=== PATIENT | male | born 1975 | race Caucasian/White ===

== ENCOUNTER 2017-12-07 16:36 | Emergency (ER) | payer OTHER ==
[~2017-12-07] VITALS: Ht 180.3 cm; Wt 59.0 kg
[~2017-12-07 16:36] MED LIST: Advil200 M1 PO; B-1100 MG PO; CEPH500 PO; CHLO25 PO; HYDACE5 PO; MAGOX 400400 MG PO; ROXICODONE5 MG PO; SERT25 PO; SULTRIDS PO; THIA100 PO; TYLENOL PM PO
[2017-12-07 17:18] LABS: BASOPHILS ABSOLUTE AUTO 0.06 K/mm3 (0.00-0.23); BASOPHILS PERCENT AUTO 1 % (0-2); EOSINOPHILS ABSOLUTE AUTO 0.03 K/mm3 (0.00-0.68); EOSINOPHILS PERCENT AUTO 1 % (0-6); Hematocrit 48.5 % (37.0-53.0); Hemoglobin 17.2 g/dL (13.5-17.5); IMMATURE GRAN ABSOLUTE AUTO 0.03 K/mm3 (0.00-0.10); IMMATURE GRAN PERCENT AUTO 1 % (0-1); LYMPHOCYTES ABSOLUTE AUTO 2.14 K/mm3 (0.84-5.20); LYMPHOCYTES PERCENT AUTO 43 % (21-46); MONOCYTES ABSOLUTE AUTO 0.46 K/mm3 (0.16-1.47); MONOCYTES PERCENT AUTO 9 % (4-13); Mean Corpuscular HGB 34.7 pg (26.0-34.0); Mean Corpuscular HGB Conc 35.5 g/dL (31.5-36.5); Mean Corpuscular Volume 98 fL (80-100); Mean Platelet Volume 10.8 fL (9.1-12.4); NEUTROPHILS ABSOLUTE AUTO 2.23 K/mm3 (1.96-9.15); NEUTROPHILS PERCENT AUTO 45 % (41-73); Platelet Count 96 K/mm3 (150-400); RDW Coefficient Variation 12.4 % (11.7-14.2); RDW Standard Deviation 44.9 fL (35.1-46.3); Red Blood Cell Count 4.96 M/mm3 (4.30-5.90); White Blood Cell Count 4.95 K/mm3 (4.00-11.30)
[2017-12-07 17:41] LABS: Magnesium, Blood 2.3 mg/dL (1.6-2.4)
[2017-12-07 17:48] LABS: Alanine Aminotransfer (ALT/SGP 52 U/L (12-78); Albumin, Blood 3.4 g/dL (3.4-5.0); Albumin/Globulin Ratio 0.8 (0.8-1.8); Alk Phos 119 U/L (50-136); Anion Gap 10 mmol/L (6-16); Aspartate Aminotrans (AST/SGOT 143 U/L (12-37); Bilirubin, Total 0.9 mg/dL (0.1-1.0); Blood Urea Nitrogen 6 mg/dL (8-24); Bun/Creatinine Ratio 10.8 (12.0-20.0); CO2, Blood 26 mmol/L (21-32); Calcium, Blood 8.3 mg/dL (8.5-10.1); Chloride, Blood 102 mmol/L (98-108); Creatinine, Blood 0.56 mg/dL (0.60-1.20); Globulin, Blood 4.1 g/dL (2.2-4.0); Glomerular Filtration Rate >60 (60-); Glucose, Blood 89 mg/dL (70-99); Potassium, Blood 4.4 mmol/L (3.5-5.5); Sodium, Blood 138 mmol/L (136-145); Total Protein, Blood 7.5 g/dL (6.4-8.2)
[2017-12-07 17:52] LABS: Ethanol (Alcohol), Blood, Med 397 mg/dL
[2017-12-07] MEDS ORDERED: CHLO25 PO (18:01)
== END 2017-12-07 18:20 | disposition home or self-care (01) ==
LOC: ER 16:36
PROVIDERS: Emergency Medicine
DX: F10.229 Alcohol dependence with intoxication, unspecified (principal); F17.210 Nicotine dependence, cigarettes, uncomplicated; Y90.8 Blood alcohol level of 240 mg/100 ml or more
CPT/HCPCS: 36415; 71046; 80053; 83735; 85025; 99283; G0480; J7030

== ENCOUNTER 2018-08-29 02:12 | Emergency (ER) | payer OTHER ==
[~2018-08-29] VITALS: Ht 180.3 cm; Wt 63.5 kg
[2018-08-29] MEDS ORDERED: GABA600 (02:40)
[2018-08-29] MEDS ORDERED: CLON.1 PO (02:41)
[2018-08-29] MEDS ORDERED: Thiamine HCl100 MG PO (02:41)
[2018-08-29] MEDS ORDERED: MULTI VITAMIN1 EACH PO (02:42)
[2018-08-29] MEDS ORDERED: FOLI400 PO (02:42)
[2018-08-29] MEDS ORDERED: Melatonin5 M1 PO (02:44)
[2018-08-29] MEDS ORDERED: LORA1 PO (02:50)
[2018-08-29] MEDS ORDERED: CHLO25 PO (02:50)
[2018-08-29] MEDS ORDERED: METO25 PO (02:51)
[2018-08-29] MEDS ORDERED: HYDPAM50 PO (02:52)
[2018-08-29] MEDS ORDERED: PROM25 PO (02:52)
[2018-08-29] MEDS ORDERED: TRAZ50 PO (02:53)
[2018-08-30] MEDS ORDERED: Ibuprofen Ib200 MG PO (12:07)
[2018-08-30] MEDS ORDERED: ACET500 PO (12:08)
== END 2018-08-29 04:41 | disposition home or self-care (01) ==
LOC: ER 02:12
DX: F10.239 Alcohol dependence with withdrawal, unspecified (principal); Z79.899 Other long term (current) drug therapy; F17.210 Nicotine dependence, cigarettes, uncomplicated
CPT/HCPCS: 99285

== ENCOUNTER 2018-08-29 06:39 | Emergency (ER) | payer OTHER ==
[~2018-08-29] VITALS: Ht 180.3 cm; Wt 63.5 kg
[~2018-08-29 06:39] MED LIST changes: +CLON.1 PO; +FOLI400 PO; +GABA600; +HYDPAM50 PO; +LORA1 PO; +METO25 PO; +MULTI VITAMIN1 EACH PO; +Melatonin5 M1 PO; +PROM25 PO; +TRAZ50 PO; +Thiamine HCl100 MG PO
[2018-08-29 07:31] LABS: BASOPHILS ABSOLUTE AUTO 0.05 K/mm3 (0.00-0.23); BASOPHILS PERCENT AUTO 1 % (0-2); EOSINOPHILS ABSOLUTE AUTO 0.06 K/mm3 (0.00-0.68); EOSINOPHILS PERCENT AUTO 1 % (0-6); Hematocrit 43.3 % (37.0-53.0); Hemoglobin 15.1 g/dL (13.5-17.5); IMMATURE GRAN ABSOLUTE AUTO 0.02 K/mm3 (0.00-0.10); IMMATURE GRAN PERCENT AUTO 0 % (0-1); LYMPHOCYTES ABSOLUTE AUTO 1.34 K/mm3 (0.84-5.20); LYMPHOCYTES PERCENT AUTO 25 % (21-46); MONOCYTES ABSOLUTE AUTO 0.46 K/mm3 (0.16-1.47); MONOCYTES PERCENT AUTO 9 % (4-13); Mean Corpuscular HGB 33.1 pg (26.0-34.0); Mean Corpuscular HGB Conc 34.9 g/dL (31.5-36.5); Mean Corpuscular Volume 95 fL (80-100); Mean Platelet Volume 10.4 fL (9.1-12.4); NEUTROPHILS ABSOLUTE AUTO 3.38 K/mm3 (1.96-9.15); NEUTROPHILS PERCENT AUTO 64 % (41-73); Platelet Count 123 K/mm3 (150-400); RDW Standard Deviation 45.3 fL (35.1-46.3); Red Blood Cell Count 4.56 M/mm3 (4.30-5.90); White Blood Cell Count 5.31 K/mm3 (4.00-11.30)
[2018-08-29 07:47] LABS: Alanine Aminotransfer (ALT/SGP 51 U/L (12-78); Albumin, Blood 3.8 g/dL (3.4-5.0); Albumin/Globulin Ratio 1.2 (0.8-1.8); Alk Phos 99 U/L (50-136); Anion Gap 7 mmol/L (6-16); Aspartate Aminotrans (AST/SGOT 76 U/L (12-37); Bilirubin, Total 2.3 mg/dL (0.1-1.0); Blood Urea Nitrogen 11 mg/dL (8-24); Bun/Creatinine Ratio 14.7 (12.0-20.0); CO2, Blood 30 mmol/L (21-32); Calcium, Blood 9.1 mg/dL (8.5-10.1); Chloride, Blood 97 mmol/L (98-108); Creatinine, Blood 0.75 mg/dL (0.60-1.20); Ethanol (Alcohol), Blood, Med <3 mg/dL; Globulin, Blood 3.3 g/dL (2.2-4.0); Glomerular Filtration Rate >60 (60-); Glucose, Blood 96 mg/dL (70-99); Potassium, Blood 3.6 mmol/L (3.5-5.5); Sodium, Blood 134 mmol/L (136-145); Total Protein, Blood 7.1 g/dL (6.4-8.2)
[2018-08-30] MEDS ORDERED: Ibuprofen Ib200 MG PO (12:07)
[2018-08-30] MEDS ORDERED: ACET500 PO (12:08)
== END 2018-08-29 07:53 | disposition left against medical advice (07) ==
LOC: ER 06:39
PROVIDERS: Emergency Medicine
DX: K52.9 Noninfective gastroenteritis and colitis, unspecified (principal); F17.210 Nicotine dependence, cigarettes, uncomplicated; Z79.899 Other long term (current) drug therapy
CPT/HCPCS: 36415; 71045; 80053; 83690; 85025; 99285-25; G0480; J7030; Q0163

== ENCOUNTER 2018-08-29 09:49 | Emergency (ER) | payer OTHER ==
[~2018-08-29] VITALS: Ht 180.3 cm; Wt 77.1 kg
[2018-08-30] MEDS ORDERED: Ibuprofen Ib200 MG PO (12:07)
[2018-08-30] MEDS ORDERED: ACET500 PO (12:08)
== END 2018-08-29 11:20 | disposition home or self-care (01) ==
LOC: ER 09:49
DX: S01.81XA Laceration without foreign body of other part of head, initial encounter (principal); W19.XXXA Unspecified fall, initial encounter; Z79.899 Other long term (current) drug therapy; F17.210 Nicotine dependence, cigarettes, uncomplicated
CPT/HCPCS: 12014; 96372; 99282-25; J3360

== ENCOUNTER 2018-08-29 13:09 | Inpatient (IN) | payer OTHER ==
[~2018-08-29] VITALS: Ht 180.3 cm; Wt 69.8 kg
--- NOTE | 2018-08-29 17:47 | NUR ---
[facility] [place]. LEFT MESSAGE AND FAX NUMBER FOR THEM TO FAX A POTENTIAL MEDICATION LIST TO. HOWEVER, PT'S MOM REPORTS SHE DOES NOT THINK THAT HE TAKES ANY MEDICATIONS, SHE NEVER SEES HIM TAKE ANY MEDICATIONS.
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
--- NOTE | 2018-08-29 18:37 | NUR ---
ADMISSION / SHIFT SUMMARY: REPORT RECEIVED FROM SEBASTIAN Velarde RN IN ED. PT ARRIVED TO ICU-12 AT APPROX 1515. HE IS RESTING QUIETLY AT THAT TIME BUT DOES BLINDLY SWING HIS ARMS OUT AT STIMULUS & NEEDS REASSURANCE & REMINDERS TO STAY CALM. PT IS NOW ON PRECEDEX DRIP, TITRATION DOC IN FLOWSHEET. HE IS TOLERATING THIS WELL & IS VISIBLY MORE RELAXED. HE DOES STILL STARTLE EASILY AT TIMES & REMAINS RESPONSIVE TO VERBAL STIMULI. HE DOES NOT FOLLOW COMMANDS OR ANSWER QUESTIONS APPROPRIATELY. HE HAS MULTIPLE WOUNDS W/ UNKNOWN MECHANISM OF INJURY, PHOTOS HAVE BEEN TAKEN & PLACED IN CHART FOR DOCUMENTATION, ALL WOUNDS HAVE BEEN DRESSED APPROPRIATELY WELL. WILL CONTINUE TO MONITOR & REPORT OFF TO ONCOMING RN.
--- NOTE | 2018-08-29 20:54 | NUR ---
PT WITH PRODUCTIVE COUGH. PT LYING IN SEMI FOWLERS. HOB 30'. PT AWAKENS SLIGHTLY WITH EYES SLIGHTLY OPEN WHEN ASKED IF HAD TO GO, "PEE". PT TOOK BLANKETS OFF. THIS RN TRIED TO PLACE URINAL WITH PT SWIPING URINAL AND RN'S HAND AWAY STATING, "I KNOW HOW MY YECENIA WORKS". URINAL PLACED AT BEDSIDE. WILL CONTINUE TO OFFER URINAL AND MONITOR PRN.
--- NOTE | 2018-08-29 22:06 | NUR ---
PRECEDEX REDUCED: PT AWAKENS SLIGHTLY TO RN MOVING IV LINES. PT MUMBLES OKAY. PT WITH SLIGHT TREMORS BUT APPEARS TO BE AWARE OF HIS SURROUNDINGS. PT FALLS IMMEDIATELY BACK TO SLEEP. PRECEDEX REDUCED TO 0.2 mcg/kg/hr. SEE W/C ASSESSMENT. WILL CONTINUE TO MONITOR.
--- NOTE | 2018-08-29 22:50 | NUR ---
PT'S MOTHER CALLED AND WAS GIVEN UPDATE.
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
--- NOTE | 2018-08-30 01:18 | NUR ---
PT TO EDGE OF BED ASKING TO BE ABLE TO GO OUT TO WALK. PT EASILY REDIRECTED AND SEEMED TO UNDERSTAND, SO FAR, HIS SITUATION IN THE ICU. PT STATED WANTING TO SMOKE. PT ACCEPTED EXPLANATION AGAIN AND LAY BACK DOWN.
--- NOTE | 2018-08-30 01:36 | NUR ---
AT APPRX 0120 PT SUDDENLY GOT TO EDGE OF BED. RN'S IMMEDIATEDLY TO BEDSIDE. PT STATED WAS LEAVING TO GO GET CIGARETTES. PT NOT EASY TO REDIRECT THIS TIME. PT PULLED OF ALL OF HIS LEADS AND WANTED TO LEAVE. AFTER REMINDING PT OF HIS THREE VISITS TO THE ED AND PURPOSE OF GOING TO [facility] PT STATED, "THEN GIVE ME SOMETHING TO CALM ME DOWN". PT PRECEDEX TITRATED UP TO 0.7mcg/kg/hr UNTIL ATIVAN GIVEN (4mg IVP FOR CIWA OF 19-24). LEADS REPLACED ON PT ALONG OXYMETER. CURRENTLY PT SLEEPING. VSS. PT SATS 95% ON RA. SEE FLOWSHEET FOR FURTHER VITALS.
[2018-08-30 03:38] LABS: Anion Gap 9 mmol/L (6-16); Blood Urea Nitrogen 9 mg/dL (8-24); Bun/Creatinine Ratio 14.5 (12.0-20.0); CO2, Blood 25 mmol/L (21-32); Calcium, Blood 7.7 mg/dL (8.5-10.1); Chloride, Blood 105 mmol/L (98-108); Creatinine, Blood 0.62 mg/dL (0.60-1.20); Glomerular Filtration Rate >60 (60-); Glucose, Blood 100 mg/dL (70-99); Magnesium, Blood 2.2 mg/dL (1.6-2.4); Potassium, Blood 3.4 mmol/L (3.5-5.5); Sodium, Blood 139 mmol/L (136-145)
--- NOTE | 2018-08-30 04:53 | NUR ---
PT CONTINUING TO SLEEP. VSS. CIWA <4 AT THIS TIME.
--- NOTE | 2018-08-30 06:42 | NUR ---
RONALD ROCK CALLED AND WAS GIVEN A BRIEF UPDATE.
--- NOTE | 2018-08-30 06:48 | NUR ---
PRECEDEX REMAINS AT 0.1mcg/kg/hr. PT HAS NOT REQUIERED ANY FURTHER CIWA INTERVENTION SINCE THE LAST AT 0125. VSS.
--- NOTE | 2018-08-30 07:30 | NUR ---
ASSUMED CARE: REPORT RECEIVED FROM GAEL Gomez RN. ASSUMED CARE OF THIS PT AT APPROX 0700. ROUNDING COMPLETE, PT RESTING QUIETLY AT THIS TIME. PRECEDEX DRIP CHARTED IN FLOWSHEET. PT ANSWERING SIMPLE QUESTIONS & IS RESPONSIVE TO VERBAL STIMULI. WILL CONTINUE TO MONITOR & UPDATE NEEDED.
--- NOTE | 2018-08-30 08:00 | NUR ---
PROVIDER IN ROOM / UPDATE: DR. MORENO IN ROOM TO SEE PT. THE PT HAS AWAKENED & BECOME MORE AGITATED, STATING HE WILL NOT TAKE ANY MEDS & WOULD LIKE TO GO HOME THIS MORNING. HE REQUESTS TO CALL HIS MOTHER TO COME GET HIM. THE PT HAS SPOKEN W/ HIS MOTHER & DR. MORENO IS IN THE ROOM TO DISCUSS CARE W/ PT. FOLLOWING HIS CONVERSATION W/ DR. MORENO, THE PT IS WILLING TO STAY ADMITTED A PT BUT WISHES TO HAVE ALL LINES DISCONNECTED SO THAT HE MAY WALK AROUND. HIS GAIT IS STEADY & HE IS ABLE TO CALL APPROPRIATELY FOR ASSISTANCE PRN.
[2018-08-30] MEDS ORDERED: Ibuprofen Ib200 MG PO (12:07)
[2018-08-30] MEDS ORDERED: ACET500 PO (12:08)
--- NOTE | 2018-08-30 15:08 | NUR ---
NOTE PT WALKED OVER WITH NURSE FROM ICU 12. PT GAIT STEADY. VSS. HANDS SLIGHTLY SHAKEY. CIWA 8. TALKED WITH PT ABOUT LIBRIUM AND ATIVAN. TALKED ABOUT A SHOWER. PT AGREED TO LIBRIUM 25MG. PT TOLERATED A SHOWER WELL. HE DID STATE THAT THE ABRASION STUNG A LOT BUT NOT TOO BAD. REDRESSED THE RIGHT SHOULDER AND RIGHT KNEE AFTER THE SHOWER. PT TALKING ABOUT 6 YEARS AGO. HE DOESN'T WANT TO GO BACK TO [facility]. HE SAYS THE PEOPLE THERE ARE A BUNCH OF [employer] AND HE DOESN'T BELONG THERE. CONTINUE POT.
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
--- NOTE | 2018-08-30 22:53 | NUR ---
PHYSICIAN CONTACTED- PT REQUESTING MEDICATION TO HELP HIM SLEEP. DR SALAZAR CONTACTED AND ORDERS RECEIVED FOR TRAZODONE 50MG AT BEDTIME PRN. WILL INPUT ORDERS AND ADMINISTER TO PT.
--- NOTE | 2018-08-31 01:57 | NUR ---
PHYSICIAN CONTACTED- PT CONTINUES TO HAVE DIFFICULTIES SLEEPING. HOME MED REC SHOWS THAT PT TAKES 1-3 OR 50-150 MG TRAZODONE AT HOME FOR SLEEP. DR HERNÁNDEZ CONTACTED AND ORDERS FOR HOME DOSE RECEIVED.
--- NOTE | 2018-08-31 05:59 | NUR ---
SHIFT SUMMARY- PT HAS REMAINED AOX4 THROUGHOUT THE SHIFT. VSS. PLEASANT AND COOPERATIVE WITH CARE. PT CONTINUES TO AMBULATE INDEPENDENTLY AROUND ROOM AND UNIT. PT EXPRESSING CONCERN ABOUT PLANS FOR DISCHARGE, STATING THAT HE WANTS TO GO BACK TO [facility] TO FULFILL REMAINDER OF TREATMENT PLAN. DRILL PRESS HAND CONSULTED FOR DISCHARGE PLANNING. PT MEDICATED ONE TIME FOR PAIN R/T BRUISING AND ABRASIONS OBTAINED PRIOR TO ADMISSIONS, REPORTED THAT PAIN DECREASED WITH ORDERED MEDICATIONS. PT ABLE TO SLEEP THROUGHOUT REMAINDER OF THE NIGHT, AFTER SECOND ORDERED DOSE OF TRAZODONE, BUT WOKE EASILY THIS AM FOR VITAL SIGNS. NO OTHER CHANGES NOTED FROM INITIAL ASSESSMENT. WILL CONTINUE TO MONITOR AND REPORT TO ONCOMING SHIFT RN. BED IN LOW POSITION, CALL LIGHT IN REACH.
--- NOTE | 2018-08-31 14:42 | NUR ---
PATIENT D/C'D WITH FAMILY. SPOKE WITH NICOL AT [facility] AND TOLD HER THAT THE HEAD CT CAME BACK CLEAR AND THE PATIENT SHOULD ARRIVE AROUND 1515 TODAY. D/C INSTRUCTIONS DISCUSSED WITH PATIENT AND COPY PROVIDED. PATIENT DENIES ANY FURTHER QUESTIONS OR CONCERNS.
== END 2018-08-31 16:03 | disposition home or self-care (01) | DRG 897 ==
LOC: ER 13:09 → ICUE 13:57 → ICUW 15:15 → PCU 08-30 13:27
PROVIDERS: ADMIT Hospitalist
DX: F10.231 Alcohol dependence with withdrawal delirium (principal); E87.1 Hypo-osmolality and hyponatremia; S01.81XA Laceration without foreign body of other part of head, initial encounter; F17.200 Nicotine dependence, unspecified, uncomplicated; W19.XXXA Unspecified fall, initial encounter; Y93.9 Activity, unspecified; R94.5 Abnormal results of liver function studies; T14.8XXA Other injury of unspecified body region, initial encounter
CPT/HCPCS: 12014; 36415; 70450; 71045; 80048; 80053; 83690; 83735; 85025; 90686; 96372; 96374; 96375; 99282-25; 99285; 99285-25; G0480; J1200; J1630; J1650; J2060; J3360; J3411; J3475; J7030; J7042; Q0163

== ENCOUNTER 2019-10-25 23:34 | Emergency (ER) | payer OTHER ==
[~2019-10-25] VITALS: Ht 180.3 cm; Wt 78.9 kg
[~2019-10-25 23:34] MED LIST changes: +ACET500 PO; +Ibuprofen Ib200 MG PO
[2019-10-26 03:57] LABS: Alanine Aminotransfer (ALT/SGP 73 U/L (12-78); Albumin, Blood 3.3 g/dL (3.4-5.0); Albumin/Globulin Ratio 0.8 (0.8-1.8); Alk Phos 145 U/L (50-136); Anion Gap 5 mmol/L (6-16); Aspartate Aminotrans (AST/SGOT 131 U/L (12-37); Bilirubin, Total 0.6 mg/dL (0.1-1.0); Blood Urea Nitrogen 5 mg/dL (8-24); Bun/Creatinine Ratio 9.8 (12.0-20.0); CO2, Blood 31 mmol/L (21-32); Calcium, Blood 8.8 mg/dL (8.5-10.1); Chloride, Blood 101 mmol/L (98-108); Creatinine, Blood 0.51 mg/dL (0.60-1.20); Globulin, Blood 3.9 g/dL (2.2-4.0); Glomerular Filtration Rate >60 (60-); Glucose, Blood 100 mg/dL (70-99); Potassium, Blood 3.8 mmol/L (3.5-5.5); Sodium, Blood 137 mmol/L (136-145); Total Protein, Blood 7.2 g/dL (6.4-8.2)
[2019-10-26 05:05] LABS: BASOPHILS ABSOLUTE AUTO 0.08 K/mm3 (0.00-0.23); BASOPHILS PERCENT AUTO 1 % (0-2); EOSINOPHILS ABSOLUTE AUTO 0.07 K/mm3 (0.00-0.68); EOSINOPHILS PERCENT AUTO 1 % (0-6); Hematocrit 43.4 % (37.0-53.0); Hemoglobin 15.2 g/dL (13.5-17.5); IMMATURE GRAN ABSOLUTE AUTO 0.06 K/mm3 (0.00-0.10); IMMATURE GRAN PERCENT AUTO 1 % (0-1); LYMPHOCYTES ABSOLUTE AUTO 1.42 K/mm3 (0.84-5.20); LYMPHOCYTES PERCENT AUTO 18 % (21-46); MONOCYTES ABSOLUTE AUTO 0.69 K/mm3 (0.16-1.47); MONOCYTES PERCENT AUTO 9 % (4-13); Mean Corpuscular HGB 34.5 pg (26.0-34.0); Mean Corpuscular Volume 98 fL (80-100); Mean Platelet Volume 10.4 fL (9.1-12.4); NEUTROPHILS ABSOLUTE AUTO 5.49 K/mm3 (1.96-9.15); NEUTROPHILS PERCENT AUTO 70 % (41-73); Platelet Count 126 K/mm3 (150-400); RDW Coefficient Variation 12.3 % (11.7-14.2); Red Blood Cell Count 4.41 M/mm3 (4.30-5.90); White Blood Cell Count 7.81 K/mm3 (4.00-11.30)
== END 2019-10-26 05:18 | disposition home or self-care (01) ==
LOC: ER 23:34
PROVIDERS: Emergency Medicine
DX: F10.129 Alcohol abuse with intoxication, unspecified (principal); R10.9 Unspecified abdominal pain; F17.210 Nicotine dependence, cigarettes, uncomplicated
CPT/HCPCS: 74176; 80053; 83690; 85025; J2405; J3010; J7030

== ENCOUNTER 2020-08-11 23:07 | Emergency (ER) | payer OTHER ==
[~2020-08-11] VITALS: Ht 180.3 cm; Wt 63.5 kg
[2020-08-11 23:40] LABS: BASOPHILS ABSOLUTE AUTO 0.04 K/mm3 (0.00-0.23); BASOPHILS PERCENT AUTO 0 % (0-2); EOSINOPHILS ABSOLUTE AUTO 0.02 K/mm3 (0.00-0.68); EOSINOPHILS PERCENT AUTO 0 % (0-6); Hematocrit 23.2 % (37.0-53.0); Hemoglobin 7.8 g/dL (13.5-17.5); IMMATURE GRAN ABSOLUTE AUTO 0.21 K/mm3 (0.00-0.10); IMMATURE GRAN PERCENT AUTO 2 % (0-1); LYMPHOCYTES ABSOLUTE AUTO 0.93 K/mm3 (0.84-5.20); LYMPHOCYTES PERCENT AUTO 8 % (21-46); MONOCYTES ABSOLUTE AUTO 0.89 K/mm3 (0.16-1.47); MONOCYTES PERCENT AUTO 8 % (4-13); Mean Corpuscular HGB 35.5 pg (26.0-34.0); Mean Corpuscular HGB Conc 33.6 g/dL (31.5-36.5); Mean Corpuscular Volume 106 fL (80-100); Mean Platelet Volume 11.3 fL (9.1-12.4); NEUTROPHILS ABSOLUTE AUTO 9.34 K/mm3 (1.96-9.15); NEUTROPHILS PERCENT AUTO 82 % (41-73); Platelet Count 125 K/mm3 (150-400); RDW Coefficient Variation 12.7 % (11.7-14.2); RDW Standard Deviation 48.3 fL (35.1-46.3); White Blood Cell Count 11.43 K/mm3 (4.00-11.30)
[2020-08-11 23:54] LABS: Alanine Aminotransfer (ALT/SGP 35 U/L (12-78); Albumin/Globulin Ratio 0.5 (0.8-1.8); Alk Phos 227 U/L (50-136); Anion Gap 13 mmol/L (6-16); Aspartate Aminotrans (AST/SGOT 66 U/L (12-37); Bilirubin, Total 2.1 mg/dL (0.1-1.0); Blood Urea Nitrogen 5 mg/dL (8-24); CO2, Blood 27 mmol/L (21-32); Calcium, Blood 7.1 mg/dL (8.5-10.1); Chloride, Blood 93 mmol/L (98-108); Creatinine, Blood 0.33 mg/dL (0.60-1.20); Ethanol (Alcohol), Blood, Med 237 mg/dL; Globulin, Blood 3.8 g/dL (2.2-4.0); Glomerular Filtration Rate >60 (60-); Glucose, Blood 71 mg/dL (70-99); Magnesium, Blood 2.3 mg/dL (1.6-2.4); Potassium, Blood 3.2 mmol/L (3.5-5.5); Sodium, Blood 133 mmol/L (136-145); Total Protein, Blood 5.8 g/dL (6.4-8.2)
[2020-08-12 00:52] LABS: Source, Urine Clean Catch
[2020-08-12 00:56] LABS: Appearance, Urine Clear (Clear); Blood, Urine Neg (Neg); Color, Urine Amber (P-Yellow); Glucose Qualitative, Urine Neg (Neg); Ketones, Urine 4+ (Neg); Leukocyte Esterase, Urine 1+ (Neg); Nitrite, Urine Neg (Neg); Protein, Urine 2+ (Neg); Specific Gravity, Urine 1.015 (1.003-1.022); Urobilinogen, Urine 4+ (Normal)
[2020-08-12 00:57] LABS: Bilirubin, Urine 1+ (Neg)
[2020-08-12 01:07] LABS: Bacteria Few /hpf; Hyaline Casts 0-2 /lpf (0-2); Red Blood Cells, Urine 0-2 /hpf (0-2); Squamous Epithelial Cells Not Seen /hpf (Few); White Blood Cells, Urine 0-2 /hpf (0-5)
[2020-08-12 01:08] LABS: International Normalized Ratio 1.09; Prothrombin Time Results 11.6 Sec (9.7-11.5)
[2020-08-12 03:02] LABS: Influenza A, PCR Negative (NEGATIVE); Influenza B, PCR Negative (NEGATIVE); Resp Syncytial Virus, PCR Negative (NEGATIVE); SARS-Cov-2 (COVID-19) PCR, MMC Negative (NEGATIVE)
== END 2020-08-12 02:12 | disposition short-term general hospital (02) ==
LOC: ER 23:07
PROVIDERS: Emergency Medicine
DX: K92.1 Melena (principal); F10.129 Alcohol abuse with intoxication, unspecified; D64.9 Anemia, unspecified; F17.210 Nicotine dependence, cigarettes, uncomplicated; Z20.828 Contact with and (suspected) exposure to other viral communicable diseases; Z79.899 Other long term (current) drug therapy
CPT/HCPCS: 0241U; 36415; 36430; 51701; 80053; 81001; 82272; 83690; 83735; 85025; 85610; 85730; 86850; 86900; 86901; 86923; 87086; 93005; 93010; 96365; 96368; 96375; 99285-25; C9113; G0480; J0696; J2060; J2354; J7030; J7050; P9016

== ENCOUNTER 2020-09-12 23:33 | Emergency (ER) | payer OTHER ==
[~2020-09-12] VITALS: Ht 180.3 cm; Wt 68.0 kg
[2020-09-13 00:51] LABS: BASOPHILS ABSOLUTE AUTO 0.09 K/mm3 (0.00-0.23); BASOPHILS PERCENT AUTO 1 % (0-2); EOSINOPHILS ABSOLUTE AUTO 0.16 K/mm3 (0.00-0.68); EOSINOPHILS PERCENT AUTO 1 % (0-6); Hematocrit 41.4 % (37.0-53.0); Hemoglobin 13.5 g/dL (13.5-17.5); IMMATURE GRAN ABSOLUTE AUTO 0.11 K/mm3 (0.00-0.10); IMMATURE GRAN PERCENT AUTO 1 % (0-1); LYMPHOCYTES ABSOLUTE AUTO 1.91 K/mm3 (0.84-5.20); LYMPHOCYTES PERCENT AUTO 13 % (21-46); MONOCYTES ABSOLUTE AUTO 0.78 K/mm3 (0.16-1.47); MONOCYTES PERCENT AUTO 5 % (4-13); Mean Corpuscular HGB 32.5 pg (26.0-34.0); Mean Corpuscular HGB Conc 32.6 g/dL (31.5-36.5); Mean Corpuscular Volume 100 fL (80-100); Mean Platelet Volume 11.2 fL (9.1-12.4); NEUTROPHILS ABSOLUTE AUTO 12.03 K/mm3 (1.96-9.15); NEUTROPHILS PERCENT AUTO 80 % (41-73); Platelet Count 210 K/mm3 (150-400); RDW Standard Deviation 51.5 fL (35.1-46.3); Red Blood Cell Count 4.15 M/mm3 (4.30-5.90); White Blood Cell Count 15.08 K/mm3 (4.00-11.30)
[2020-09-13 00:55] LABS: Alanine Aminotransfer (ALT/SGP 18 U/L (12-78); Albumin, Blood 1.9 g/dL (3.4-5.0); Albumin/Globulin Ratio 0.3 (0.8-1.8); Alk Phos 217 U/L (50-136); Anion Gap 9 mmol/L (6-16); Aspartate Aminotrans (AST/SGOT 81 U/L (12-37); Bilirubin, Total 3.5 mg/dL (0.1-1.0); Blood Urea Nitrogen 4 mg/dL (8-24); Bun/Creatinine Ratio 7.5 (12.0-20.0); CO2, Blood 30 mmol/L (21-32); Calcium, Blood 8.1 mg/dL (8.5-10.1); Chloride, Blood 93 mmol/L (98-108); Creatinine, Blood 0.53 mg/dL (0.60-1.20); Ethanol (Alcohol), Blood, Med 6 mg/dL; Globulin, Blood 5.5 g/dL (2.2-4.0); Glomerular Filtration Rate >60 (60-); Glucose, Blood 109 mg/dL (70-99); Potassium, Blood 3.8 mmol/L (3.5-5.5); Sodium, Blood 132 mmol/L (136-145); Total Protein, Blood 7.4 g/dL (6.4-8.2)
[2020-09-13 04:10] LABS: Automated BF WBC Count 0.045 K/mm3 (0-999); Body Fluid WBC Count 45 /mm3 (0-999)
[2020-09-13 04:11] LABS: Appearance, Body Fluid Clear (Clear); Color, Body Fluid Yellow (None-Yellow)
[2020-09-13 04:18] LABS: Glucose, Body Fluid 111 mg/dL; Protein, Body Fluid 0.5 g/dL
[2020-09-13 04:21] LABS: RBC Count, Body Fluid 10 /mm3 (0-0)
[2020-09-13 04:32] LABS: Total Cell Count, Body Fluid 100
== END 2020-09-13 05:52 | disposition home or self-care (01) ==
LOC: ER 23:33
PROVIDERS: Student in an Organized Health Care Education/Training Program
DX: R18.8 Other ascites (principal); F10.10 Alcohol abuse, uncomplicated; E86.0 Dehydration; F17.210 Nicotine dependence, cigarettes, uncomplicated
CPT/HCPCS: 36415; 71045; 80053; 82140; 82945; 83690; 84157; 85025; 87205; 89051; 99285-25; G0480; J7120

== ENCOUNTER 2020-10-05 18:20 | Emergency (ER) | payer OTHER ==
[~2020-10-05] VITALS: Ht 180.3 cm; Wt 64.0 kg
[2020-10-05 19:38] LABS: BASOPHILS ABSOLUTE AUTO 0.06 K/mm3 (0.00-0.23); BASOPHILS PERCENT AUTO 0 % (0-2); EOSINOPHILS PERCENT AUTO 1 % (0-6); Hematocrit 39.7 % (37.0-53.0); Hemoglobin 13.5 g/dL (13.5-17.5); IMMATURE GRAN ABSOLUTE AUTO 0.08 K/mm3 (0.00-0.10); IMMATURE GRAN PERCENT AUTO 1 % (0-1); LYMPHOCYTES ABSOLUTE AUTO 2.62 K/mm3 (0.84-5.20); LYMPHOCYTES PERCENT AUTO 18 % (21-46); MONOCYTES ABSOLUTE AUTO 0.77 K/mm3 (0.16-1.47); MONOCYTES PERCENT AUTO 5 % (4-13); Mean Corpuscular HGB 32.5 pg (26.0-34.0); Mean Corpuscular Volume 95 fL (80-100); Mean Platelet Volume 10.9 fL (9.1-12.4); NEUTROPHILS ABSOLUTE AUTO 11.35 K/mm3 (1.96-9.15); NEUTROPHILS PERCENT AUTO 76 % (41-73); Platelet Count 215 K/mm3 (150-400); RDW Coefficient Variation 13.9 % (11.7-14.2); Red Blood Cell Count 4.16 M/mm3 (4.30-5.90); White Blood Cell Count 14.98 K/mm3 (4.00-11.30)
[2020-10-05 20:03] LABS: Alanine Aminotransfer (ALT/SGP 15 U/L (12-78); Albumin, Blood 2.3 g/dL (3.4-5.0); Albumin/Globulin Ratio 0.5 (0.8-1.8); Alk Phos 203 U/L (50-136); Anion Gap 5 mmol/L (6-16); Aspartate Aminotrans (AST/SGOT 50 U/L (12-37); Bilirubin, Total 2.2 mg/dL (0.1-1.0); Blood Urea Nitrogen 28 mg/dL (8-24); Bun/Creatinine Ratio 34.9 (12.0-20.0); CO2, Blood 31 mmol/L (21-32); Calcium, Blood 8.6 mg/dL (8.5-10.1); Chloride, Blood 94 mmol/L (98-108); Globulin, Blood 4.9 g/dL (2.2-4.0); Glomerular Filtration Rate >60 (60-); Glucose, Blood 110 mg/dL (70-99); Potassium, Blood 3.5 mmol/L (3.5-5.5); Sodium, Blood 130 mmol/L (136-145); Total Protein, Blood 7.2 g/dL (6.4-8.2)
[2020-10-05 20:49] LABS: International Normalized Ratio 1.24; Prothrombin Time Results 13.1 Sec (9.7-11.5)
== END 2020-10-05 20:34 | disposition home or self-care (01) ==
LOC: ER 18:20
PROVIDERS: Emergency Medicine; Physician Assistant
DX: R18.8 Other ascites (principal); R14.0 Abdominal distension (gaseous); R06.02 Shortness of breath; F17.200 Nicotine dependence, unspecified, uncomplicated
CPT/HCPCS: 36415; 80053; 85025; 85610; 85730; 99283

== ENCOUNTER 2020-10-27 09:44 | Emergency (ER) | payer OTHER ==
[~2020-10-27] VITALS: Ht 180.3 cm; Wt 63.5 kg
[2020-10-27 10:38] LABS: Hematocrit 34.7 % (37.0-53.0); Hemoglobin 11.8 g/dL (13.5-17.5); Mean Corpuscular HGB 31.5 pg (26.0-34.0); Mean Corpuscular Volume 93 fL (80-100); Mean Platelet Volume 10.1 fL (9.1-12.4); Platelet Count 199 K/mm3 (150-400); RDW Coefficient Variation 13.5 % (11.7-14.2); Red Blood Cell Count 3.75 M/mm3 (4.30-5.90); White Blood Cell Count 8.83 K/mm3 (4.00-11.30)
[2020-10-27 10:52] LABS: International Normalized Ratio 1.07; Prothrombin Time Results 11.4 Sec (9.7-11.5)
[2020-10-27 10:56] LABS: Alanine Aminotransfer (ALT/SGP 24 U/L (12-78); Albumin/Globulin Ratio 0.4 (0.8-1.8); Alk Phos 176 U/L (50-136); Anion Gap 5 mmol/L (6-16); Aspartate Aminotrans (AST/SGOT 42 U/L (12-37); Blood Urea Nitrogen 14 mg/dL (8-24); Bun/Creatinine Ratio 21.1 (12.0-20.0); CO2, Blood 32 mmol/L (21-32); Calcium, Blood 8.8 mg/dL (8.5-10.1); Chloride, Blood 94 mmol/L (98-108); Creatinine, Blood 0.66 mg/dL (0.60-1.20); Globulin, Blood 4.6 g/dL (2.2-4.0); Glomerular Filtration Rate >60 (60-); Glucose, Blood 107 mg/dL (70-99); Potassium, Blood 3.5 mmol/L (3.5-5.5); Sodium, Blood 131 mmol/L (136-145); Total Protein, Blood 6.6 g/dL (6.4-8.2)
[2020-10-27 11:24] LABS: BASOPHILS ABSOLUTE MAN 0.17 K/mm3 (0.00-0.23); BASOPHILS PERCENT MAN 2 % (0-2); EOSINOPHILS PERCENT MAN 0 % (0-6); LYMPHOCYTES ABSOLUTE MAN 2.29 K/mm3 (0.84-5.20); LYMPHOCYTES PERCENT MAN 26 % (21-46); MONOCYTES ABSOLUTE MAN 0.35 K/mm3 (0.16-1.47); MONOCYTES PERCENT MAN 4 % (4-13); SEG NEUTROPHILS PERCENT MAN 68 % (41-73); TOTAL CELLS COUNTED 100
== END 2020-10-27 13:00 | disposition home or self-care (01) ==
LOC: ER 09:44
PROVIDERS: Physician Assistant
DX: R18.8 Other ascites (principal); F17.210 Nicotine dependence, cigarettes, uncomplicated
CPT/HCPCS: 36415; 80053; 85025; 85610; 99284

== ENCOUNTER 2020-11-15 14:26 | Day surgery (SDC) | payer OTHER | END 2020-11-15 22:59 | disposition home or self-care (01) | LOC: US 14:26 | DX: K70.31 Alcoholic cirrhosis of liver with ascites (principal); K70.40 Alcoholic hepatic failure without coma | CPT/HCPCS: 49083; 76700 ==

== ENCOUNTER 2020-11-30 17:32 | Inpatient (IN) | payer OTHER ==
[~2020-11-30] VITALS: Ht 180.3 cm; Wt 75.6 kg
[2020-11-30 18:41] LABS: BASOPHILS ABSOLUTE AUTO 0.06 K/mm3 (0.00-0.23); BASOPHILS PERCENT AUTO 0 % (0-2); EOSINOPHILS ABSOLUTE AUTO 0.07 K/mm3 (0.00-0.68); EOSINOPHILS PERCENT AUTO 1 % (0-6); Hematocrit 29.6 % (37.0-53.0); IMMATURE GRAN ABSOLUTE AUTO 0.08 K/mm3 (0.00-0.10); IMMATURE GRAN PERCENT AUTO 1 % (0-1); LYMPHOCYTES ABSOLUTE AUTO 1.56 K/mm3 (0.84-5.20); LYMPHOCYTES PERCENT AUTO 11 % (21-46); MONOCYTES ABSOLUTE AUTO 0.88 K/mm3 (0.16-1.47); MONOCYTES PERCENT AUTO 6 % (4-13); Mean Corpuscular HGB 31.3 pg (26.0-34.0); Mean Corpuscular HGB Conc 33.8 g/dL (31.5-36.5); Mean Corpuscular Volume 93 fL (80-100); NEUTROPHILS ABSOLUTE AUTO 11.59 K/mm3 (1.96-9.15); NEUTROPHILS PERCENT AUTO 81 % (41-73); Platelet Count 239 K/mm3 (150-400); RDW Coefficient Variation 13.5 % (11.7-14.2); RDW Standard Deviation 46.3 fL (35.1-46.3); Red Blood Cell Count 3.19 M/mm3 (4.30-5.90); White Blood Cell Count 14.24 K/mm3 (4.00-11.30)
--- NOTE | 2020-11-30 18:57 | NUR ---
ADMIT NOTE PATIENT DIRECT ADMITTED TO FLOOR AT 1800 FOR PERIRECTAL ABSCESS WITH DR BLISS. PLAN FOR SURGERY 12/01/20. 18 G IV STARTED IN LEFT ANTECUBITAL. LABS DRAWN AND CAPS CHANGED. IV ABX AND PAIN MEDS GIVEN. PATIENT NOTED TO HAVE SEVERE ADM DISTENTION/ASCITES. PT REPORTS HE GETS THE ABD FLUID DRAINED EVERY 1-2 WEEKS. SKIN IS DRY WITH SCATTERED BRUISES AND SCABS. PATIENT IS ALERT AND ORIENTED. RATING PERIRECTAL PAIN 9/10 BEFORE MEDS.
[2020-11-30 19:00] LABS: International Normalized Ratio 1.11; Prothrombin Time Results 11.9 Sec (9.7-11.5)
[2020-11-30 19:55] LABS: Alanine Aminotransfer (ALT/SGP 14 U/L (12-78); Albumin, Blood 1.5 g/dL (3.4-5.0); Albumin/Globulin Ratio 0.4 (0.8-1.8); Alk Phos 123 U/L (50-136); Anion Gap 7 mmol/L (6-16); Aspartate Aminotrans (AST/SGOT 28 U/L (12-37); Bilirubin, Total 0.5 mg/dL (0.1-1.0); Blood Urea Nitrogen 11 mg/dL (8-24); Bun/Creatinine Ratio 17.6 (12.0-20.0); CO2, Blood 26 mmol/L (21-32); Calcium, Blood 7.9 mg/dL (8.5-10.1); Chloride, Blood 97 mmol/L (98-108); Creatinine, Blood 0.62 mg/dL (0.60-1.20); Globulin, Blood 4.2 g/dL (2.2-4.0); Glomerular Filtration Rate >60 (60-); Glucose, Blood 102 mg/dL (70-99); Potassium, Blood 3.4 mmol/L (3.5-5.5); Sodium, Blood 130 mmol/L (136-145); Total Protein, Blood 5.7 g/dL (6.4-8.2)
[2020-11-30] MEDS ORDERED: HYDR1TAB94 PO (20:27)
[2020-11-30] MEDS ORDERED: LACT10SY PO (20:27)
[2020-11-30] MEDS ORDERED: MULVITA PO (20:27)
[2020-12-01 04:52] LABS: Anion Gap 6 mmol/L (6-16); Blood Urea Nitrogen 10 mg/dL (8-24); Bun/Creatinine Ratio 13.9 (12.0-20.0); CO2, Blood 30 mmol/L (21-32); Calcium, Blood 7.4 mg/dL (8.5-10.1); Chloride, Blood 98 mmol/L (98-108); Creatinine, Blood 0.72 mg/dL (0.60-1.20); Glomerular Filtration Rate >60 (60-); Glucose, Blood 103 mg/dL (70-99); Potassium, Blood 3.3 mmol/L (3.5-5.5); Sodium, Blood 134 mmol/L (136-145)
--- NOTE | 2020-12-01 05:35 | NUR ---
shift summary: DIRECT ADMIT PRE OP ROHITH RECTAL / HX CIRROHSIS R/T ETOH ABUSE PT IS A&OX3, CALM AND COOPERATIVE W/ BRIEF PERIOD OF LABILE TEARFUL PRESENTATION ,REPORTS HX OF MULTIPLE FALLS ABRASIONS TO HANDS, FINGERS,LEFT ELBOW, BILATERAL SHINS, RIGHT KNEE. PT HAS HX OF CIRROHSIS R/T ETOH W/ ASCEITIIES FIRM TENDER HYPOACTIVE BS, PAIN CURRENTLY CHEMICALLY MANAGED TOLERABLE @4/10W,18G IV LFA INFUSING LR @75HR IVPB UNISON, DRESSING TO GLUTEAL FOLD WOUND C/D/I IMAGES IN HARD CHART PROVIDER ASSESSED @STAGE2 ASSIST TO TURN Q2 HRS, SKIN IS DRY T/O W/ SCALES TO LE, PT REPORTS SMOKES 1 PACK A DAY, EXPERITORY WHEEZES BILATERALLY DIMINISHED ALL BHATIA. TACHYCARDIC T/O SHIFT 100-117,HON 30 DEGREES, CALL BURGESS WITHIN REACH
--- NOTE | 2020-12-01 07:35 | NUR ---
pt allows student to participate in care
--- NOTE | 2020-12-01 09:00 | NUR ---
PT PLEASANT COOP A/O./ SOME LABILE. QUIET. STATES GETS BELLY TAPPED EVERY 2 WEEKS. HE STATES MAY HAVE MOVED TO WEEKLY. STATES BRO IN LAW TAKES HIM FOR TX. PAIN MANAGEABLE AT THIS TIME. H/R REG, NO MURMER NOTED. NO TELE. LUNGS CLEAR WITH EXP WHEEZES IN UPPER. ON R.A. ABD DISTENDED, LARGE. TONES X4. EXPECTING PARACENTISIS TODAY, VOIDS URINAL AND 1 ASST TO BATHROOM. ROHITH WOUND TO BE I&D TODAY. PER DR COLLADO EARLY AFT. BED IN LOW POSITION, CALL LITE IN REACH, CALLS APPROP
--- NOTE | 2020-12-01 10:56 | NUR ---
TO [facility] PARACENTISIS 105
[2020-12-01 11:01] LABS: Influenza A, PCR NEGATIVE (NEGATIVE); Influenza B, PCR NEGATIVE (NEGATIVE); Resp Syncytial Virus, PCR NEGATIVE (NEGATIVE); SARS-Cov-2 (COVID-19) PCR, MMC NEGATIVE (NEGATIVE)
--- NOTE | 2020-12-01 11:47 | NUR ---
1130 THERESE LUGO FROM [facility] CALLED. 9L OUT SO FAR, WANTING TO KNOW HOW MUCH TO TAKE. REQUEST HOLD FOR NOW, AND WILL CALL DRMat CALLED DR JOSIANE HILLS STOP. CALLED THERESE KAUFMAN, BP NOW , CALLED THERESE KAUFMAN. DR HILLS STOP AND SEND BACK. CAN PULL MORE LATER IF NEEDED. THERESE HILLS TOTAL IS 10.5 LITERS REMOVED. PT TO ROOM AT 1152.
--- NOTE | 2020-12-01 13:22 | NUR ---
1310 ALBUMIN STARTED. DAY SURG IS HERE FOR PT. NEW SECOND IV STARTED FOR SURG AND TO KEEP ALBUMIN RUNNING. SENT ADDL BOTTLE ALBUMIN WITH PT.
--- NOTE | 2020-12-01 14:58 | NUR ---
12/01/20 1458 Renee Green PT ON SCHEDULED ANTIBIOTICS
--- NOTE | 2020-12-01 16:02 | NUR ---
PT ARRIVED BACK TO UNIT AT APROX 1600 FROM PACU. PT BP 88/58 UPON ARRIVAL TO UNIT, MESSAGE LEFT FOR DR BLISS. OTHER VSS AT THIS TIME.
--- NOTE | 2020-12-01 17:41 | NUR ---
SHIFT SUMMARY PT HAD PARACENTESIS THIS AM. 10L REMOVED FROM ABD. 3 BOTTLES OF ALBUMIN GIVEN AFTERWARDS. PT WAS THEN TAKEN TO SURGERY FOR A I&D OF HIS PERIRECTAL ABCESS. PER PACU, PT HAD SOFT BPS, WITH A SBP AROUND THE UPPER 90S PRIOR TO AND AFTER THE SURGERY. WHEN PT ARRIVED TO THE FLOOR, THIS BP WAS 88/59. SEE CHARGE NURSE, ELISSA'S NOTE. AFTER 500ML BOLUS OF LR AND THE THIRD BOTTLE OF ALBUMIN WAS FINISHED INFUSING, PTS BP IMPROVED TO 108/68 & REMAINS CONSISTANT AROUND THIS VALUE. DR. JOSHUA NOTIFIED OF THIS AND MIDORINE TID WAS STARTED THIS AFTERNOON. HR TRENDING IN THE UPPER 90S-LOW 100S. PT ALERT & ORIENTED. CONVERSING WITH THIS NURSE THIS AFTERNOON. PT STOOD AND TRANSFERED TO THE BSC WITH 1P MINIMAL ASSIST. PT DENIED DIZZINESS T/O TRANSFER. SURGICAL SITE HAS MINIMAL DRAINAGE. ABD PAD CHANGED FOR CLEANLINESS. IMAGING ON THEIR WAY TO PICK PT UP FOR A PE STUDY DUE TO DIM LS ON THE R SIDE. OTHER VITALS STABLE. PT RESTING UPRIGHT IN BED. CALL LIGHT IN REACH.
[2020-12-02 04:48] LABS: BASOPHILS ABSOLUTE AUTO 0.01 K/mm3 (0.00-0.23); BASOPHILS PERCENT AUTO 0 % (0-2); EOSINOPHILS PERCENT AUTO 0 % (0-6); Hematocrit 23.6 % (37.0-53.0); IMMATURE GRAN ABSOLUTE AUTO 0.05 K/mm3 (0.00-0.10); IMMATURE GRAN PERCENT AUTO 1 % (0-1); LYMPHOCYTES ABSOLUTE AUTO 1.29 K/mm3 (0.84-5.20); LYMPHOCYTES PERCENT AUTO 17 % (21-46); MONOCYTES ABSOLUTE AUTO 0.43 K/mm3 (0.16-1.47); MONOCYTES PERCENT AUTO 6 % (4-13); Mean Corpuscular HGB Conc 33.9 g/dL (31.5-36.5); Mean Corpuscular Volume 92 fL (80-100); NEUTROPHILS PERCENT AUTO 76 % (41-73); Platelet Count 210 K/mm3 (150-400); RDW Coefficient Variation 13.6 % (11.7-14.2); Red Blood Cell Count 2.58 M/mm3 (4.30-5.90); White Blood Cell Count 7.48 K/mm3 (4.00-11.30)
--- NOTE | 2020-12-02 05:14 | NUR ---
SUMMARY NO ACUTE CHANGES THIS SHIFT. VOIDING AND TOLERATING PO. INC APPEARS CLEAN. PAIN MEDS EFFECTIVE. BP CONTINUES STABLE MILD HYPOTENSION WHICH WAS RE[PORTED PER DAY RN DR AWARE.
[2020-12-02 05:43] LABS: Alanine Aminotransfer (ALT/SGP 9 U/L (12-78); Albumin, Blood 2.2 g/dL (3.4-5.0); Albumin/Globulin Ratio 0.7 (0.8-1.8); Alk Phos 85 U/L (50-136); Anion Gap 7 mmol/L (6-16); Aspartate Aminotrans (AST/SGOT 14 U/L (12-37); Bilirubin, Total 0.7 mg/dL (0.1-1.0); Blood Urea Nitrogen 6 mg/dL (8-24); Bun/Creatinine Ratio 9.9 (12.0-20.0); CO2, Blood 28 mmol/L (21-32); Calcium, Blood 7.6 mg/dL (8.5-10.1); Chloride, Blood 99 mmol/L (98-108); Creatinine, Blood 0.61 mg/dL (0.60-1.20); Ferritin, Serum 306 ng/mL (26-388); Glomerular Filtration Rate >60 (60-); Glucose, Blood 106 mg/dL (70-99); Iron Serum 34 ug/dL (65-175); Percent Saturation 45.3 % (20.0-50.0); Potassium, Blood 3.7 mmol/L (3.5-5.5); Sodium, Blood 134 mmol/L (136-145); Total Iron Binding Capacity 75 ug/dL (250-450); Total Protein, Blood 5.2 g/dL (6.4-8.2)
[2020-12-02] MEDS ORDERED: AMOCLA500 PO (14:55)
--- NOTE | 2020-12-02 15:28 | NUR ---
DISCHARGED DC'D IVS, CATHETERS INTACT. CALLED PRESCRIPTION INTO [facility]. REVIEWED DC INSTRUCTIONS W/PT; VERBALIZED UNDERSTANDING. PT GETTING DRESSED AND AWAITING RIDE.
--- NOTE | 2020-12-02 15:54 | NUR ---
PT LEFT UNIT IN WC W/POSSESSIONS AND DC PAPERWORK IN HAND TO RIDE AWAITING OUTSIDE.
[2020-12-04 00:09] LABS: HBSAG SCREEN Negative (Negative); HEP B CORE AB, TOT Negative (Negative); HEP C VIRUS AB <0.1 (0.0-0.9)
== END 2020-12-02 15:55 | disposition home or self-care (01) | DRG 853 ==
LOC: SURS 17:32
PROVIDERS: Internal Medicine; ADMIT Surgery
PROC: 0W9G3ZZ Drainage of Peritoneal Cavity, Percutaneous Approach (ICD-10-PCS; 2020-12-01)
PROC: 0D9P0ZZ Drainage of Rectum, Open Approach (ICD-10-PCS; principal; 2020-12-01 14:00)
DX: A41.9 Sepsis, unspecified organism (principal); E43 Unspecified severe protein-calorie malnutrition; K61.1 Rectal abscess; Z20.822 Contact with and (suspected) exposure to COVID-19; K70.31 Alcoholic cirrhosis of liver with ascites; F10.10 Alcohol abuse, uncomplicated; J44.9 Chronic obstructive pulmonary disease, unspecified; F17.210 Nicotine dependence, cigarettes, uncomplicated; F32.9 Major depressive disorder, single episode, unspecified; E87.6 Hypokalemia; D63.8 Anemia in other chronic diseases classified elsewhere; Z68.23 Body mass index [BMI] 23.0-23.9, adult; Z79.899 Other long term (current) drug therapy; Z79.1 Long term (current) use of non-steroidal anti-inflammatories (NSAID); Z79.891 Long term (current) use of opiate analgesic
CPT/HCPCS: 0241U; 36415; 49083; 71046; 74177; 80048; 80053; 82607; 82728; 82746; 83540; 83550; 84443; 85025; 85610; 85730; 86317; 86704; 86708; 86803; 87070; 87075; 87076; 87205; 87340; 94640; 94760; A9270; J0295; J2250; J3010; J7040; J7120; P9046; Q9967

== ENCOUNTER 2020-12-04 10:55 | Day surgery (SDC) | payer OTHER ==
[~2020-12-04 10:55] MED LIST changes: +AMOCLA500 PO; +HYDR1TAB94 PO; +LACT10SY PO; +MULVITA PO
== END 2020-12-04 22:42 | disposition home or self-care (01) ==
LOC: US 10:55
DX: K70.31 Alcoholic cirrhosis of liver with ascites (principal); K70.40 Alcoholic hepatic failure without coma
CPT/HCPCS: 49083

== ENCOUNTER 2021-01-16 10:28 | Day surgery (SDC) | payer OTHER | END 2021-01-16 23:42 | disposition home or self-care (01) | LOC: US 10:28 | DX: K70.31 Alcoholic cirrhosis of liver with ascites (principal); K70.40 Alcoholic hepatic failure without coma | CPT/HCPCS: 76705 ==